=== PATIENT | female | born 1960 | race Caucasian/White ===

== ENCOUNTER 2016-06-29 20:48 | Emergency (ER) | payer OTHER ==
[~2016-06-29] VITALS: Ht 165.1 cm; Wt 74.7 kg
[~2016-06-29 20:48] MED LIST: ADVAIR 100-501 EACH IH; ADVAIR 250-501 EACH IH; ADVAIR 250/501 DISK IH; ALBUTEROL SULF8.5 GM IH; AMBIEN10 MG PO; CELEXA20 MG PO; DIAZEPAM10 MG PO; DIAZEPAM5 MG PO; DILAUDID2 MG PO; ENDOCET 10-3251 EACH PO; ESCITALOPRAM OX20 MG PO; FLEXERIL10 MG PO; GABAPENTIN400 MG PO; GLUCOPHAGE500 M1 PO; LIDOCAINE700 MG TD; LISINOPRIL5 MG PO; METHOCARBAMOL500 MG PO; MOBIC15 MG PO; NEURONTIN300 MG PO; NEURONTIN600 MG PO; NICODERM CQ1 EAC2 TD; OXYCODONE HCL10 MG PO; PANTOPRAZOLE SO40 MG PO; PERCOCET 5/31 TABLET PO; PRISTIQ100 MG PO; PROAIR HFA8.5 GM IH; TRAZODONE HCL100 MG PO; TRAZODONE HCL150 MG PO; TYLENOL WITH C1 EACH PO; VENTOLIN HFA18 GM IH; XANAX1 MG PO; ZESTRIL
[2016-06-29] MEDS ORDERED: CLONAZEPAM1 MG PO (22:17)
[2016-06-29] MEDS ORDERED: ZOLPIDEM TARTRA10 MG PO (22:17)
[2016-06-29] MEDS ORDERED: GABAPENTIN300 MG PO (22:18)
[2016-06-29 23:53] VITALS: BP 108/72
== END 2016-06-29 23:54 | disposition home or self-care (01) ==
LOC: EME 20:48
DX: G43.909 Migraine, unspecified, not intractable, without status migrainosus (principal); J44.9 Chronic obstructive pulmonary disease, unspecified; K21.9 Gastro-esophageal reflux disease without esophagitis; F17.200 Nicotine dependence, unspecified, uncomplicated
CPT/HCPCS: 99281; 99285; J1100; J1200; J1885; J2405; J7030

== ENCOUNTER 2016-07-30 02:52 | Inpatient (IN) | payer OTHER ==
[~2016-07-30] VITALS: Ht 165.1 cm; Wt 74.0 kg
[~2016-07-30 02:52] MED LIST changes: +CLONAZEPAM1 MG PO; +GABAPENTIN300 MG PO; +ZOLPIDEM TARTRA10 MG PO
[2016-07-30 04:54] LABS: EOSINOPHIL (%) 1.4 % (0-5); EOSINOPHIL COUNT 0.2 K/uL (0-0.3); HEMATOCRIT 35.7 % (36.0-46.0); IMMATURE GRANULOCYTE (%) 0.3 % (0.0-0.7); IMMATURE GRANULOCYTE COUNT 0.1 K/uL; INSTRUMENT ABS NEUTROPHIL CT 10.2 K/uL; LYMPHOCYTE COUNT 3.4 K/uL (1.0-2.8); MCH 32.4 PG (29.0-34.0); MCHC 33.6 G/DL (30.0-36.0); MCV 96.5 FL (83-99); MEAN PLAT.VOLUME 9.8 uM^3 (9.5-12.4); MONOCYTE (%) 5.3 % (3-12); MONOCYTE COUNT 0.8 K/uL (0-0.8); NEUTROPHIL (%) 69.7 % (45-76); NEUTROPHIL COUNT 10.2 K/uL (1.8-6.4); PLATELET COUNT 341 K/uL (156-360); RBC DIS.WIDTH-CV 13.9 % (11.8-14.6); RBC DIS.WIDTH-SD 49.7 % (39-53); WHITE BLOOD COUNT 14.6 K/uL (4.1-10.2)
[2016-07-30 05:35] LABS: ALKALINE PHOSPHATASE 58 IU/L (3-129); ANION GAP 9 MEQ/L (2-14); CHLORIDE 110 MEQ/L (99-109); GFR ESTIMATE (CALCULATED) > 59 mL/min/; GLUCOSE 111 mg/dL (70-99); SAMPLE HEMOLYSIS CHECK 0; SAMPLE ICTERIC CHECK 0; SAMPLE LIPEMIA CHECK 0; SERUM ETHYL ALCOHOL 157 mg/dL; SODIUM 147 MEQ/L (136-147); TOTAL BILIRUBIN 0.2 MG/DL (0.0-1.0); UREA NITROGEN (BUN) 12 mg/dL (9-23)
[2016-07-30 06:41] LABS: QUANTITATIVE HCG < 4.0 MIU/ML
[2016-07-30 07:04] LABS: SALICYLATE < 1.0 MG/DL (15-30)
[2016-07-30 11:15] VITALS: BP 118/65
[2016-07-30 11:18] VITALS: BP 118/65
[2016-07-30] MEDS ORDERED: GRALISE300 MG PO (11:49)
[2016-07-30 15:26] VITALS: BP 105/57
[2016-07-31 07:38] VITALS: BP 102/57
[2016-07-31 15:45] VITALS: BP 114/57
[2016-08-01 07:25] VITALS: BP 107/69
== END 2016-08-01 10:56 | disposition home or self-care (01) | DRG 885 ==
LOC: EME 02:52 → EDOF 10:04 → 1WEST 10:04
PROVIDERS: Emergency Medicine
DX: F33.2 Major depressive disorder, recurrent severe without psychotic features (principal); F10.129 Alcohol abuse with intoxication, unspecified; G47.00 Insomnia, unspecified; F12.10 Cannabis abuse, uncomplicated; G89.29 Other chronic pain; R45.851 Suicidal ideations
CPT/HCPCS: 80053; 81003; 84702; 85025; 90837; 99202; 99281; 99285; G0480; J1630; J2060

== ENCOUNTER 2016-08-06 02:54 | Emergency (ER) | payer OTHER ==
[~2016-08-06] VITALS: Ht 165.1 cm; Wt 74.7 kg
[~2016-08-06 02:54] MED LIST changes: +GRALISE300 MG PO
[2016-08-06 05:32] VITALS: BP 140/80
== END 2016-08-06 05:41 | disposition home or self-care (01) ==
LOC: EME → EDBD 02:54 → EME 05:41
DX: S00.93XA Contusion of unspecified part of head, initial encounter (principal); M25.511 Pain in right shoulder; W07.XXXA Fall from chair, initial encounter; J44.9 Chronic obstructive pulmonary disease, unspecified; F17.200 Nicotine dependence, unspecified, uncomplicated
CPT/HCPCS: 70450; 70486; 73030; 99281; 99284; J3030

== ENCOUNTER 2016-10-26 19:04 | Emergency (ER) | payer OTHER ==
[~2016-10-26] VITALS: Ht 165.1 cm; Wt 75.1 kg
[2016-10-26 22:45] LABS: EOSINOPHIL (%) 2.4 % (0-5); EOSINOPHIL COUNT 0.3 K/uL (0-0.3); HEMATOCRIT 40.8 % (36.0-46.0); IMMATURE GRANULOCYTE (%) 0.2 % (0.0-0.7); INSTRUMENT ABS NEUTROPHIL CT 5.1 K/uL; LYMPHOCYTE COUNT 4.2 K/uL (1.0-2.8); MCH 32.3 PG (29.0-34.0); MCHC 34.1 G/DL (30.0-36.0); MCV 94.7 FL (83-99); MEAN PLAT.VOLUME 10.4 uM^3 (9.5-12.4); MONOCYTE COUNT 0.7 K/uL (0-0.8); NEUTROPHIL (%) 49.1 % (45-76); NEUTROPHIL COUNT 5.1 K/uL (1.8-6.4); PLATELET COUNT 405 K/uL (156-360); RBC DIS.WIDTH-CV 13.8 % (11.8-14.6); RBC DIS.WIDTH-SD 48.2 % (39-53); RED BLOOD COUNT 4.31 M/uL (3.80-5.20); WHITE BLOOD COUNT 10.4 K/uL (4.1-10.2)
[2016-10-26 22:59] LABS: CHLORIDE 109 mEq/L (99-109); POTASSIUM 4.3 mEq/L (3.7-5.4); SODIUM 144 mEq/L (136-147)
[2016-10-26 23:01] LABS: GLUCOSE 100 mg/dL (70-99)
[2016-10-26 23:03] LABS: ANION GAP 11 MEQ/L (2-14); TOTAL BILIRUBIN 0.2 mg/dL (0.0-1.0)
[2016-10-26 23:04] LABS: SERUM ETHYL ALCOHOL < 10 mg/dL
[2016-10-26 23:05] LABS: ALKALINE PHOSPHATASE 65 IU/L (3-129); GFR ESTIMATE (CALCULATED) > 59 mL/min/
[2016-10-26 23:06] LABS: UREA NITROGEN (BUN) 13 mg/dL (9-23)
[2016-10-27 06:25] LABS: AMPHETAMINE NEGATIVE (500 ng/mL); BARBITURATES NEGATIVE (200 ng/mL); BENZODIAZEPINES PRESUMPTIVE POSITIVE (150 ng/mL); COCAINE NEGATIVE (150 ng/mL); INTERNAL CONTROLS VALID? YES; METHADONE NEGATIVE (200 ng/mL); METHAMPHETAMINE NEGATIVE (500 ng/mL); OPIATES (MORPHINE) PRESUMPTIVE POSITIVE (100 ng/mL); OXYCODONE PRESUMPTIVE POSITIVE (100 ng/mL); PHENCYCLIDINE NEGATIVE (25 ng/mL); PROPOXYPHENE NEGATIVE (300 ng/mL); THC CANNABINOIDS PRESUMPTIVE POSITIVE (50 ng/mL); TRICYCLIC ANTIDEPRESSANTS NEGATIVE (300 ng/mL)
[2016-10-27 06:26] LABS: ADD MEDTOX COMMENT Y
[2016-10-27 06:59] LABS: BENZODIAZEPINES, URINE SCREEN POSITIVE (200 ng/mL)
[2016-10-27 10:44] VITALS: BP 107/63
== END 2016-10-27 10:45 ==
LOC: EME → EDBD 19:04 → EME 10-27 10:45
PROVIDERS: Emergency Medicine
DX: R45.851 Suicidal ideations (principal); F33.2 Major depressive disorder, recurrent severe without psychotic features; J44.9 Chronic obstructive pulmonary disease, unspecified; F17.200 Nicotine dependence, unspecified, uncomplicated
CPT/HCPCS: 80053; 84999; 85025; 90837; 99281; 99284; G0480

== ENCOUNTER 2017-08-01 17:09 | Emergency (ER) | payer OTHER ==
[~2017-08-01] VITALS: Ht 165.1 cm; Wt 74.8 kg
[2017-08-01 19:17] VITALS: BP 124/76
== END 2017-08-01 19:21 | disposition left against medical advice (07) ==
LOC: EME 17:09
DX: M25.511 Pain in right shoulder (principal); M25.521 Pain in right elbow; M25.551 Pain in right hip; R51 Headache; M54.2 Cervicalgia; J44.9 Chronic obstructive pulmonary disease, unspecified; F17.200 Nicotine dependence, unspecified, uncomplicated; W01.0XXA Fall on same level from slipping, tripping and stumbling without subsequent striking against object, initial encounter
CPT/HCPCS: 99281; 99284